=== PATIENT | male | born 1975 | race Caucasian/White ===

== ENCOUNTER 2019-11-12 01:06 | Emergency (ER) | payer MEDICAID, SELFPAY ==
[2019-11-12 01:16] VITALS: BP 153/79; PULSE 71; RESP 15; TEMP 37.1; O2SAT 99; BMI 25.1
[2019-11-12 02:08] LABS: Basophils # 0.1 K/mm3 (0-0.2); Basophils % 0.4 % (0.1-2.0); Eosinophils # 0.4 K/mm3 (0.0-0.4); Eosinophils % 3.5 % (0.1-12.0); Hemoglobin 14.7 g/dL (14.1-18.0); Lymphocytes # 3.9 K/mm3 (0.7-4.5); Lymphocytes % 33.8 % (10-50); Mean Corpuscular HGB Conc 34.2 g/dL (31.8-35.4); Mean Corpuscular Hemoglobin 32.6 pg (27.0-31.2); Mean Corpuscular Volume 95.3 fl (80-94); Mean Platelet Volume 7.3 fl (7.4-10.4); Monocytes # 0.7 K/mm3 (0.1-1.0); Monocytes % 5.8 % (1.7-9.3); Neutrophils # 6.5 K/mm3 (1.8-7.8); Neutrophils % 56.5 % (37.0-80.0); Platelet Count 224 K/mm3 (142-424); Red Blood Count 4.51 M/mm3 (4.60-6.20); Red Cell Distribution Width 13.3 % (11.5-17.5); White Blood Count 11.5 K/mm3 (4.8-10.8)
[2019-11-12 02:16] LABS: Alanine Aminotransferase 19 U/L (12-78); Albumin Level 4.4 g/dl (3.5-5.0); Albumin/Globulin Ratio 1.5 (1.1-1.8); Alkaline Phosphatase 73 U/L (38-126); Anion Gap 12.7 mEq/L (5-15); Aspartate Amino Transferase 39 U/L (17-59); Bilirubin,Total 0.3 mg/dl (0.2-1.3); Blood Urea Nitrogen 22 mg/dl (9-20); Calcium 9.2 mg/dl (8.4-10.2); Carbon Dioxide 23 mmol/L (22.0-30.0); Chloride 103 mmol/L (98-107); Creatinine Clearance Estimated 111 mL/min (50-200); Estimated Glomerular Filt Rate 82 ml/min (>60); GFR (African American) 99 ML/MIN (>60); Glucose 114 mg/dl (74-100); Potassium 3.7 mmoL/L (3.5-5.1); Sodium 135 mmol/L (136-145); Total Protein,Serum 7.4 g/dl (6.3-8.2)
[2019-11-12 02:21] LABS: C-Reactive Protein 4.2 mg/L (0-4)
[2019-11-12 02:33] VITALS: BP 94/60; PULSE 82; RESP 20; O2SAT 97
[2019-11-12 02:45] LABS: Erythrocyte Sedimentation Rate 14 mm/hr (0-15)
--- NOTE | 2019-11-12 02:46 | HMH.EDSKAF ---
ED Disposition Clinical Impression: Cellulitis Qualifiers: Site of cellulitis: extremity Site of cellulitis of extremity: lower extremity Laterality: left Qualified Code(s): L03.116 - Cellulitis of left lower limb Disposition: Home, Self-Care Condition on Discharge: Good Instructions: Cellulitis Additional Instructions: keep clean and use meds and see pcp for follow up Prescriptions: Mupirocin [Bactroban 2% Ointment 22gm tube] 1 applicatio TP BID #1 tube [facility] cephALEXin [Keflex 500mg Cap] 500 mg PO TID #30 cap Transmission Status: [facility] Minocycline HCl [Minocycline HCl 100mg Tab*] 100 mg PO BID #20 tab Transmission Status: [facility] Referrals: Provider,Referral, [Primary Care Provider] - - Critical Care Critical Care Time: No Attestation: On 11/12/19, the high probability of a clinically significant, sudden or life threatening deterioration of the following system(s) required my full and direct attention, intervention and personal management. The time I documented below is in addition to time spent performing reported procedures but includes the following listed in this critical care notation. Medical Decision Making - Medical Records Medical records reviewed: Yes: I reviewed the patient's medical records. - Carter Inquiry Pt receiving controlled substance: No Vital Signs: 11/12/19 01:16 11/12/19 02:33 Temperature 98.7 F Temperature Source Oral Pulse Rate [Right Brachial] 71 82 Respiratory Rate 15 20 Blood Pressure [Right Arm] 153/79 H 94/60 L Blood Pressure Mean [Right Arm] 103 71 Blood Pressure Source [Right Arm] Automatic Cuff Blood Pressure Position [Right Arm] Sitting 02 Sat by Pulse Oximetry 99 97 Oxygen Delivery Method Room Air Room Air - Lab Data Lab results reviewed: Yes: I reviewed the patient's lab results. Lab Results 11/12/19 01:58: WBC 11.5 H, RBC 4.51 L, Hgb 14.7, Hct 43.0, MCV 95.3 H, MCH 32.6 H, MCHC 34.2, RDW 13.3, Plt Count 224, MPV 7.3 L, Neut % (Auto) 56.5, Lymph % (Auto) 33.8, [place] % (Auto) 5.8, Eos % (Auto) 3.5, Baso % (Auto) 0.4, Neut # (Auto) 6.5, Lymph # (Auto) 3.9, [place] # (Auto) 0.7, Eos # (Auto) 0.4, Baso # (Auto) 0.1, ESR 14 11/12/19 01:58: Sodium 135 L, Potassium 3.7, Chloride 103, Carbon Dioxide 23, Anion Gap 12.7, BUN 22 H, Creatinine 1.00, Estimated Creat Clear 111, Estimated GFR 82, Est GFR ( Amer) 99, Glucose 114 H, Calcium 9.2, Total Bilirubin 0.3, AST 39, ALT 19, Alkaline Phosphatase 73, C-Reactive Protein 4.2 H, Total Protein 7.4, Albumin 4.4, Globulin 3.0, Albumin/Globulin Ratio 1.5 11/12/19 01:58: Lactate 1.0 Result diagrams: 11/12/19 01:58 11/12/19 01:58 Orders (Tests/Meds): ED MEDICATIONS Generic Name Dose Route Start Last Admin Trade Name Freq PRN Reason Stop Dose Admin Sodium Chloride 1,000 mls @ 999 mls/hr 11/12/19 02:45 11/12/19 02:37 Sod Chlor 0.9% 1000ml Bag IV 11/12/19 03:45 999 mls/hr .Q1H1M NAWAF Administration ORDERS Category Date Time Status Blood Culture Stat Micro 11/12/19 01:58 Received Skin/Abscess/FB HPI - General Chief complaint: Skin/Abscess/Foreign Body Stated complaint: Insect Bite on left Ankle Time Seen by Provider: 11/12/19 02:46 Mode of Arrival: Family Vehicle Source of Information: Patient, Spouse, Medical Record Limitations: No Limitations Description of Symptoms (Recalled from ER Triage Doc. by RN): left lateral calf insect bite with surround inflamed tissue. states he believe he got it on sat, but then possibly aggravated today by moving it alot. no pr3ev shared med history i don't do doctors - History of Present Illness HPI narrative: infected insect bite rt lower leg over the last few days MD complaint: insect bite/sting Onset (ago): day(s) Tetanus up to date: unsure Location: LLE Severity: moderate Quality: sharp Associated symptoms: denies other symptoms
[2019-11-12 03:03] VITALS: BP 112/80; PULSE 67; RESP 16; TEMP 37.1; O2SAT 98
== END 2019-11-12 03:18 | disposition home or self-care (01) ==
PROVIDERS: Emergency Provider Emergency Medicine
DX: L03.116 Cellulitis of left lower limb (principal); Z87.891 Personal history of nicotine dependence
CPT/HCPCS: 80053; 83605; 85025; 85651; 86140; 87040; 87070; 87205; 96365; 96375; 99283; 99284

== ENCOUNTER 2020-07-17 01:32 | Emergency (ER) | payer SELFPAY ==
[2020-07-17 01:40] VITALS: BP 154/99; PULSE 91; RESP 17; TEMP 37; O2SAT 99; BMI 20.7
--- NOTE | 2020-07-17 01:44 | PC.NURSE ---
pt at bedside with ultrasound looking at area of complaint
--- NOTE | 2020-07-17 01:44 | HMH.EDGENADL ---
ED Disposition Clinical Impression: Cellulitis Qualifiers: Site of cellulitis: extremity Site of cellulitis of extremity: lower extremity Laterality: left Qualified Code(s): L03.116 - Cellulitis of left lower limb Disposition: Home, Self-Care Condition on Discharge: Good Additional Instructions: Please return to the ED for any new or worsening symptoms including worsening redness spreading up the leg or fever Prescriptions: Sulfamethoxazole/Trimethoprim [Bactrim DS tablet] 1 each PO BID 7 Days #14 tab Transmission Status: [facility] cephALEXin [Cephalexin 500mg Tab] 500 mg PO Q6H 7 Days #28 tab Transmission Status: [facility] Referrals: PCP,No [Primary Care Provider] - Time of Disposition: :11 - Critical Care Critical Care Time: No Attestation: On 07/17/20, the high probability of a clinically significant, sudden or life threatening deterioration of the following system(s) required my full and direct attention, intervention and personal management. The time I documented below is in addition to time spent performing reported procedures but includes the following listed in this critical care notation. Medical Decision Making - Medical Records Medical records reviewed: Yes: I reviewed the patient's medical records. - Carter Inquiry Pt receiving controlled substance: No Vital Signs: 07/17/20 01:40 Temperature 98.6 F Temperature Source Oral Pulse Rate [Right Brachial] 91 H Respiratory Rate 17 Blood Pressure [Right Arm] 154/99 H Blood Pressure Mean [Right Arm] 117 Blood Pressure Source [Right Arm] Automatic Cuff Blood Pressure Position [Right Arm] Sitting 02 Sat by Pulse Oximetry 99 Oxygen Delivery Method Room Air Orders (Tests/Meds): ED MEDICATIONS Discontinued Medications Generic Name Dose Route Start Last Admin Trade Name Freq PRN Reason Stop Dose Admin Cephalexin HCl 500 mg 07/17/20 01:46 Cephalexin 500mg Capsule PO 07/17/20 01:47 ONCE ONE Protocol Trimethoprim/Sulfamethoxazole 1 each 07/17/20 01:46 Sulfa/Trimethoprim 1 Tablet PO 07/17/20 01:47 ONCE ONE Protocol Medical Decision Narrative: 45-year-old male who presents with swelling and redness to the left foot. Appears to have a cellulitis related to an abrasion just below the lateral malleolus. He has no systemic symptoms and is overall well-appearing. There is no evidence of abscess. Due to the infection being on the foot he will be given both Bactrim and Keflex and strict return precautions. He was discharged home in good condition after first dose obtained here. General Adult HPI - General Stated complaint: Insect bite on Rt Foot Time Seen by Provider: 07/17/20 01:45 Mode of Arrival: Family Vehicle Limitations: No Limitations Description of Symptoms (Recalled from ER Triage Doc. by RN): pt states he noticed a spot on his left lateral ankle. redness and swelling present. afebrile. thinks he might have a spider bite. - History of Present Illness HPI narrative: 45-year-old male who noticed redness and swelling over the lateral side of his left foot above the heel. Tender to touch and has pain while wearing his work boot. Suspects that he was bitten by a bug possibly a spider inside of his boot. Denies fever, chills, body aches. Has been able to walk without difficulty. No pain with flexion of the ankle. History of MRSA Onset (ago): day(s) Location: lower extremity Severity: mild Consistency: constant - Related Data Previous Rx's Medication Instructions Recorded Minocycline HCl [Minocycline HCl 100 mg PO BID #20 tab 11/12/19 100mg Tab*] Mupirocin [Bactroban 2% Ointment 1 applicatio TP BID #1 tube 11/12/19 22gm tube] cephALEXin [Keflex 500mg Cap] 500 mg PO TID #30 cap 11/12/19 Sulfamethoxazole/Trimethoprim 1 each PO BID 7 Days #14 tab 07/17/20 [Bactrim DS tablet] cephALEXin [Cephalexin 500mg Tab] 500 mg PO Q6H 7 Days #28 tab 0
[2020-07-17 02:17] VITALS: BP 134/72; PULSE 73; RESP 18; TEMP 36.8; O2SAT 98
== END 2020-07-17 02:20 | disposition home or self-care (01) ==
PROVIDERS: Emergency Provider Student in an Organized Health Care Education/Training Program
DX: S90.862A Insect bite (nonvenomous), left foot, initial encounter (principal); L03.116 Cellulitis of left lower limb; Z87.891 Personal history of nicotine dependence
CPT/HCPCS: 99281

== ENCOUNTER → 2020-11-05 14:37 | Outpatient (CLI) | payer SELFPAY ==
--- NOTE | 2020-11-05 14:48 | XR_ITS ---
PROCEDURE: XR CHEST 2V CLINICAL HISTORY: TB +Quantiferon TB-Gold Plus, Rule out Active/Latent COMPARISON: No exams were available for comparison FINDINGS: The cardiomediastinal silhouette and pulmonary vascularity are within normal limits. The lungs are clear without infiltrates, suspicious nodules, or pleural effusions. No acute bony abnormalities. IMPRESSION: No acute cardiopulmonary disease. Dictated by: Chad Hines MD 11/05/2020 15:33 Chad Hines MD in [place] 11/05/2020 15:33
== END ==
PROVIDERS: PCP Nurse Practitioner Family; Visit Provider Nurse Practitioner Family
DX: Z11.1 Encounter for screening for respiratory tuberculosis (principal)
CPT/HCPCS: 71046

== ENCOUNTER 2020-12-03 11:32 | Emergency (ER) | payer OTHER, SELFPAY ==
--- NOTE | 2020-12-03 11:56 | ECG_ITS ---
APPROVED REPORT Exam: Resting ECG HR:72 bpm ECG Measurements Heart Rate 72 AXES OH 172 P 58 QRSd 80 QRS 78 QT 366 T 58 QTc 400 Conclusion Normal sinus rhythm Normal ECG Electronically signed by : Fredi Morfin, 12/03/2020 21:31:49
--- NOTE | 2020-12-03 11:59 | HMH.EDGENADL ---
ED Disposition Clinical Impression: Right upper quadrant pain Disposition: Home, Self-Care Condition on Discharge: Good Instructions: DI for Acute Abdominal Pain Additional Instructions: Ibuprofen for pain. Additional instructions for ABDOMINAL PAIN: See your physician as soon as possible for further evaluation. Return immediately if worsening abdominal pain, vomiting, shortness of breath, fever, vomiting of blood or abdominal distention. Referrals: Dayana Mac APRN [Primary Care Provider] - - Critical Care Critical Care Time: No Attestation: On 12/03/20, the high probability of a clinically significant, sudden or life threatening deterioration of the following system(s) required my full and direct attention, intervention and personal management. The time I documented below is in addition to time spent performing reported procedures but includes the following listed in this critical care notation. Medical Decision Making - Carter Inquiry Pt receiving controlled substance: No Vital Signs: 12/03/20 12:02 Temperature 98.3 F Temperature Source Oral Pulse Rate [Left Radial] 76 Respiratory Rate 18 Blood Pressure [Right Arm] 165/87 H Blood Pressure Mean [Right Arm] 113 Blood Pressure Source [Right Arm] Automatic Cuff Blood Pressure Position [Right Arm] Sitting 02 Sat by Pulse Oximetry 98 Oxygen Delivery Method Room Air - Lab Data Lab Results 12/03/20 11:46: WBC 9.9, RBC 5.35, Hgb 15.6, Hct 45.5, MCV 85.1, MCH 29.2, MCHC 34.3, RDW 14.2, Plt Count 306, MPV 7.2 L, Neut % (Auto) 59.2, Lymph % (Auto) 32.5, [place] % (Auto) 5.7, Eos % (Auto) 1.6, Baso % (Auto) 1.0, Neut # (Auto) 5.8, Lymph # (Auto) 3.2, [place] # (Auto) 0.6, Eos # (Auto) 0.2, Baso # (Auto) 0.1 12/03/20 11:46: Amylase 57, Lipase 86 12/03/20 11:46: Sodium 139, Potassium 4.0, Chloride 105, Carbon Dioxide 26, Anion Gap 12.0, BUN 15, Creatinine 0.90, Estimated Creat Clear 132, Estimated GFR 92, Est GFR ( Amer) 111, Glucose 108 H, Calcium 8.9, Total Bilirubin 0.3, AST 31, ALT 20, Alkaline Phosphatase 81, Total Protein 7.6, Albumin 4.4, Globulin 3.2, Albumin/Globulin Ratio 1.4 12/03/20 12:12: Urine Color Yellow, Urine Appearance Clear, Urine pH 6.0, Ur Specific [place] 1.020, Urine Protein 1+, Urine Glucose (UA) Negative, Urine Ketones Negative, Urine Blood Trace-i, Urine Nitrate Negative, Urine Bilirubin Negative, Urine Urobilinogen 0.2, Ur Leukocyte Esterase Negative, Urine RBC None, Urine WBC None, Ur Squamous Epith Cells Occasional, Urine Bacteria None Result diagrams: 12/03/20 11:46 12/03/20 11:46 Orders (Tests/Meds): ED MEDICATIONS Discontinued Medications Generic Name Dose Route Start Last Admin Trade Name Freq PRN Reason Stop Dose Admin Sodium Chloride 1,000 mls @ 999 mls/hr 12/03/20 12:15 12/03/20 12:15 Sod Chlor 0.9% 1000ml Bag IV 12/03/20 13:15 999 mls/hr .Q1H1M NAWAF Administration Iopamidol 75 ml 12/03/20 12:36 12/03/20 12:38 Iopamidol-370 (76%);100ml Bottle IV 12/03/20 12:37 75 ml ONCE ONE Administration Ketorolac Tromethamine 30 mg 12/03/20 12:12 12/03/20 12:15 Ketorolac 30mg/Ml Vial IV 12/03/20 12:13 30 mg ONCE ONE Administration Ondansetron HCl 4 mg 12/03/20 12:12 12/03/20 12:15 Ondansetron 4mg/2ml Vial IV 12/03/20 12:13 4 mg ONCE ONE Administration Sodium Chloride 10 ml 12/03/20 12:36 12/03/20 12:38 Sodium Chloride 0.9% 10ml Syr (Rad Only) IV 12/03/20 12:37 10 ml ONCE ONE Administration - CT Data CT Scan: Abdomen, Pelvis Time Received: 13:[address] Reviewed: Yes: I have viewed the radiologist's interpretation Findings Narrative: PROCEDURE: CT ABDOMEN PELVIS W CON CLINICAL INDICATION: abdomen pain Right upper quadrant pain COMPARISON: No exams were available for comparison TECHNIQUE: IV Contrast: 75ML Isovue 370 Oral Contrast None Axial images obtained with sagittal and coronal reformats. All CT scans at the facility use one o
[2020-12-03 12:02] VITALS: BP 165/87; PULSE 76; RESP 18; TEMP 36.8; O2SAT 98; BMI 27.1
--- NOTE | 2020-12-03 12:12 | CT_ITS ---
PROCEDURE: CT ABDOMEN PELVIS W CON CLINICAL INDICATION: abdomen pain Right upper quadrant pain COMPARISON: No exams were available for comparison TECHNIQUE: IV Contrast: 75ML Isovue 370 Oral Contrast None Axial images obtained with sagittal and coronal reformats. All CT scans at the facility use one or more dose reduction, viz: automated exposure control, ma/kV adjustment per patient size (including targeted exams where dose is matched to indication, i.e. head), or iterative reconstruction technique. FINDINGS: LOWER THORAX: Minimal atelectatic changes in the right lung base posteriorly ABDOMEN & PELVIS: The liver, spleen, adrenal glands, and pancreas have an unremarkable appearance. There is mild ectasia of both renal collecting systems no definite ureteral calculi. No renal calculi apparent. Unremarkable appendix. No intestinal obstruction or free air. There is a mild amount of retained colonic feces. Small umbilical hernia containing fat There is mild thickening of the urinary bladder nonspecific. No evidence of diverticulitis. No pelvic mass or abnormal fluid collection. No acute bony anomaly IMPRESSION: 1. There is mild urinary bladder wall thickening which may be seen with incomplete distension, chronic outflow obstruction, or cystitis. 2. Otherwise negative Dictated by: Shahbaz Ann MD 12/03/2020 13:08 Shahbaz Ann MD in [place] 12/03/2020 13:08
[2020-12-03 12:22] LABS: Microscopic, Urine URINE MICROSCOPIC (MICROSCOPIC)
[2020-12-03 12:25] LABS: Appearance,Urine CLEAR (Clear); Bilirubin,Urine Negative (Negative); Blood, Urine TRACE-I (Negative); Color,Urine YELLOW (Yellow); Glucose,Urine (UA) Negative (Negative); Ketones,Urine Negative (Negative); Leukocyte Esterase,Urine Negative (Negative); Nitrate,Urine Negative (Negative); Protein,Urine 1+ (Negative); Urobilinogen,Urine 0.2 EU/dl (0.2)
[2020-12-03 12:26] LABS: Basophils # 0.1 K/mm3 (0-0.2); Eosinophils # 0.2 K/mm3 (0.0-0.4); Eosinophils % 1.6 % (0.1-12.0); Hematocrit 45.5 % (42.0-52.0); Hemoglobin 15.6 g/dL (14.1-18.0); Lymphocytes # 3.2 K/mm3 (0.7-4.5); Lymphocytes % 32.5 % (10-50); Mean Corpuscular HGB Conc 34.3 g/dL (31.8-35.4); Mean Corpuscular Hemoglobin 29.2 pg (27.0-31.2); Mean Corpuscular Volume 85.1 fl (80-94); Mean Platelet Volume 7.2 fl (7.4-10.4); Monocytes # 0.6 K/mm3 (0.1-1.0); Monocytes % 5.7 % (1.7-9.3); Neutrophils # 5.8 K/mm3 (1.8-7.8); Neutrophils % 59.2 % (37.0-80.0); Platelet Count 306 K/mm3 (142-424); Red Blood Count 5.35 M/mm3 (4.60-6.20); Red Cell Distribution Width 14.2 % (11.5-17.5); White Blood Count 9.9 K/mm3 (4.8-10.8)
[2020-12-03 12:32] LABS: Chloride 105 mmol/L (98-107); Sodium 139 mmol/L (136-145)
[2020-12-03 12:34] LABS: Blood Urea Nitrogen 15 mg/dl (9-20); Creatinine Clearance Estimated 132 mL/min (50-200); Estimated Glomerular Filt Rate 92 ml/min (>60); GFR (African American) 111 ML/MIN (>60)
[2020-12-03 12:35] LABS: Alanine Aminotransferase 20 U/L (12-78); Albumin Level 4.4 g/dl (3.5-5.0); Albumin/Globulin Ratio 1.4 (1.1-1.8); Alkaline Phosphatase 81 U/L (38-126); Amylase 57 U/L (30-110); Aspartate Amino Transferase 31 U/L (17-59); Bilirubin,Total 0.3 mg/dl (0.2-1.3); Calcium 8.9 mg/dl (8.4-10.2); Carbon Dioxide 26 mmol/L (22.0-30.0); Globulin 3.2 g/dL (1.3-3.2); Glucose 108 mg/dl (74-100); Lipase 86 U/L (23-300); Total Protein,Serum 7.6 g/dl (6.3-8.2)
[2020-12-03 12:41] LABS: Squamous Epithelial Cell,Urine Occasional #/hpf (0-5)
[2020-12-03 13:46] VITALS: BP 161/99; PULSE 75; RESP 18; TEMP 36.8; O2SAT 97
== END 2020-12-03 13:48 | disposition home or self-care (01) ==
PROVIDERS: Emergency Provider Emergency Medicine; PCP Nurse Practitioner Family
DX: R10.11 Right upper quadrant pain (principal); Z87.891 Personal history of nicotine dependence
CPT/HCPCS: 74177; 80053; 81001; 82150; 83690; 85025; 93005; 96365; 96375; 99283; J2405; Q9967

== ENCOUNTER 2021-08-03 23:34 | Emergency (ER) | payer OTHER, SELFPAY ==
[2021-08-03 23:36] VITALS: BP 154/100; PULSE 97; RESP 18; TEMP 37.3; O2SAT 97; BMI 28.3
[2021-08-03 23:46] VITALS: BP 154/100; PULSE 109; O2SAT 96
[2021-08-04] VITALS: BP 139/103; PULSE 107; O2SAT 95
[2021-08-04 00:30] VITALS: BP 124/91; PULSE 96; O2SAT 92
--- NOTE | 2021-08-04 00:38 | CT_ITS ---
PROCEDURE INFORMATION: Exam: CT Lumbar Spine Without Contrast Exam date and time: 08/04/2021 12:38 AM Age: 46 years old Clinical indication: Other: Pain radiates to lle; Additional info: Pain to lle TECHNIQUE: Imaging protocol: Computed tomography images of the lumbar spine without contrast. Radiation optimization: All CT scans at this facility use at least one of these dose optimization techniques: automated exposure control; mA and/or kV adjustment per patient size (includes targeted exams where dose is matched to clinical indication); or iterative reconstruction. COMPARISON: CT ABDOMEN PELVIS W CON 12/03/2020 12:31 PM FINDINGS: Vertebrae: Presumed rudimentary disc space at S1-S2 for purposes of this dictation. Lumbar vertebral body heights are maintained. No acute fracture. There is a mild levoconvex curvature of the lumbar spine. Mild retrolisthesis of L2 on L3 is unchanged compared to prior CT study of 12/03/2020 and therefore chronic/degenerative. No new spondylolisthesis. L1-L2: Ediz-hs-wpcaijkn disc height loss with bilobed disc bulging. Mild spinal canal stenosis. Neural foramina appear adequately patent. L2-L3: Mild retrolisthesis. Mild disc height loss with circumferential bulging and posterior endplate spurring. Mild facet hypertrophy. Moderate neural foraminal narrowing. Mild spinal canal stenosis. L3-L4: Mild disc height loss with bilobed disc bulging and posterior endplate spurring. Mild hypertrophic facet arthropathy and ligamentum flavum thickening. Moderate to severe right and moderate left neural foraminal narrowing. Dwen-hp-aofylyzg spinal canal stenosis. L4-L5: Mild disc height loss with circumferential bulging and posterior endplate spurring, asymmetric towards the right. Mild to moderate facet hypertrophy and ligamentum flavum thickening. Mild to moderate spinal canal stenosis. Marked right lateral recess effacement, with possible impingement of the descending right L5 nerve root. Severe right and moderate to severe left neural foraminal narrowing. L5-S1: Mild disc height loss with circumferential bulging and posterior endplate spurring, asymmetric towards the left. Moderate facet hypertrophy. Mild ligamentum flavum thickening. Mild spinal canal stenosis. Moderate left lateral recess effacement. Severe left and moderate to severe right neural foraminal narrowing. Paraspinal soft tissues: Unremarkable. IMPRESSION: 1. No acute finding within the lumbar spine. 2. Multilevel degenerative changes as described.
[2021-08-04 00:59] LABS: Basophils # 0.2 K/mm3 (0-0.2); Basophils % 2.1 % (0.1-2.0); Eosinophils # 0.1 K/mm3 (0.0-0.4); Hematocrit 47.4 % (42.0-52.0); Hemoglobin 15.5 g/dL (14.1-18.0); Lymphocytes # 2.8 K/mm3 (0.7-4.5); Lymphocytes % 31.5 % (10-50); Mean Corpuscular HGB Conc 32.6 g/dL (31.8-35.4); Mean Corpuscular Volume 88.9 fl (80-94); Mean Platelet Volume 7.2 fl (7.4-10.4); Monocytes # 0.5 K/mm3 (0.1-1.0); Monocytes % 5.5 % (1.7-9.3); Neutrophils # 5.4 K/mm3 (1.8-7.8); Neutrophils % 59.9 % (37.0-80.0); Platelet Count 295 K/mm3 (142-424); Red Blood Count 5.33 M/mm3 (4.60-6.20); Red Cell Distribution Width 13.8 % (11.5-17.5)
[2021-08-04 01:01] LABS: Chloride 105 mmol/L (98-107); Potassium 4.3 mmoL/L (3.5-5.1); Sodium 138 mmol/L (136-145)
[2021-08-04 01:04] LABS: Blood Urea Nitrogen 27 mg/dl (9-20); Creatinine Clearance Estimated 123 mL/min (50-200); Estimated Glomerular Filt Rate 81 ml/min (>60); GFR (African American) 98 ML/MIN (>60)
[2021-08-04 01:05] LABS: Alanine Aminotransferase 27 U/L (12-78); Albumin Level 4.6 g/dl (3.5-5.0); Alkaline Phosphatase 77 U/L (38-126); Anion Gap 13.3 mEq/L (5-15); Aspartate Amino Transferase 35 U/L (17-59); Bilirubin,Direct 0.3 mg/dl (0.0-0.4); Bilirubin,Total 0.3 mg/dl (0.2-1.3); Bilirubin,Unconjugated 0.1 mg/dL (0.0-1.1); Calcium 8.6 mg/dl (8.4-10.2); Carbon Dioxide 24 mmol/L (22.0-30.0); Glucose 102 mg/dl (74-100); Total Protein,Serum 7.7 g/dl (6.3-8.2)
[2021-08-04 01:10] LABS: C-Reactive Protein 2.7 mg/L (0-4)
[2021-08-04 01:35] LABS: Erythrocyte Sedimentation Rate 8 mm/hr (0-15)
--- NOTE | 2021-08-04 01:47 | HMH.EDGENADL ---
ED Disposition Clinical Impression: Lumbar radiculopathy, acute Disposition: Home, Self-Care Condition on Discharge: Good Instructions: DI for Lumbar Radiculopathy Additional Instructions: use meds and see pcp for follow up Prescriptions: predniSONE [Prednisone 20mg Tab] 20 mg PO BID #10 tab Transmission Status: Pending to [facility] Referrals: Provider,Referral, [Primary Care Provider] - - Critical Care Critical Care Time: No Attestation: On 08/03/21, the high probability of a clinically significant, sudden or life threatening deterioration of the following system(s) required my full and direct attention, intervention and personal management. The time I documented below is in addition to time spent performing reported procedures but includes the following listed in this critical care notation. Medical Decision Making - Medical Records Medical records reviewed: Yes: I reviewed the patient's medical records. - Carter Inquiry Pt receiving controlled substance: No Vital Signs: 08/03/21 23:36 08/03/21 23:46 08/04/21 00:00 Temperature 99.1 F Temperature Source Oral Pulse Rate 109 H 107 H Pulse Rate [Left] 97 H Respiratory Rate 18 Blood Pressure 154/100 H 139/103 H Blood Pressure [Right Arm] 154/100 H Blood Pressure Mean [Right Arm] 118 02 Sat by Pulse Oximetry 97 96 95 Oxygen Delivery Method Room Air Room Air Room Air 08/04/21 00:30 Temperature Temperature Source Pulse Rate 96 H Pulse Rate [Left] Respiratory Rate Blood Pressure 124/91 H Blood Pressure [Right Arm] Blood Pressure Mean [Right Arm] 02 Sat by Pulse Oximetry 92 L Oxygen Delivery Method Room Air - Lab Data Lab results reviewed: Yes: I reviewed the patient's lab results. Lab Results 08/04/21 00:50: WBC 9.0, RBC 5.33, Hgb 15.5, Hct 47.4, MCV 88.9, MCH 29.0, MCHC 32.6, RDW 13.8, Plt Count 295, MPV 7.2 L, Neut % (Auto) 59.9, Lymph % (Auto) 31.5, [place] % (Auto) 5.5, Eos % (Auto) 1.0, Baso % (Auto) 2.1 H, Neut # (Auto) 5.4, Lymph # (Auto) 2.8, [place] # (Auto) 0.5, Eos # (Auto) 0.1, Baso # (Auto) 0.2, ESR 8 08/04/21 00:50: Sodium 138, Potassium 4.3, Chloride 105, Carbon Dioxide 24, Anion Gap 13.3, BUN 27 H, Creatinine 1.00, Estimated Creat Clear 123, Estimated GFR 81, Est GFR ( Amer) 98, Glucose 102 H, Calcium 8.6, C-Reactive Protein 2.7 08/04/21 00:50: Total Bilirubin 0.3, Direct Bilirubin 0.3, Conjugated Bilirubin 0.0, Indirect Bilirubin 0.0, Unconjugated Bilirubin 0.1, AST 35, ALT 27, Alkaline Phosphatase 77, Total Protein 7.7, Albumin 4.6 Result diagrams: 08/04/21 00:50 08/04/21 00:50 Orders (Tests/Meds): ED MEDICATIONS Discontinued Medications Generic Name Dose Route Start Last Admin Trade Name Freq PRN Reason Stop Dose Admin Ketorolac Tromethamine 60 mg 08/04/21 00:39 08/04/21 00:43 Ketorolac 60mg/2ml Vial IM 08/04/21 00:40 Not Given ONCE ONE Ketorolac Tromethamine 30 mg 08/04/21 00:41 08/04/21 00:55 Ketorolac 30mg/Ml Vial IV 08/04/21 00:42 30 mg ONCE ONE Administration Methylprednisolone Sodium Succinate 125 mg 08/04/21 00:39 08/04/21 00:43 Methylprednisolone Sod Succ 125mg Vial IM 08/04/21 00:40 Not Given ONCE ONE Methylprednisolone Sodium Succinate 125 mg 08/04/21 00:41 08/04/21 00:55 Methylprednisolone Sod Succ 125mg Vial IV 08/04/21 00:42 125 mg ONCE ONE Administration - CT Data CT Scan: L-Spine Time Received: 01:[address] Reviewed: Yes: I have viewed the radiologist's interpretation Preliminary Findings: Abnormal (see report ) Medical Decision Narrative: has back pain with neurogenic claudication - no cauda equina - General Adult HPI - General Chief complaint: PAIN Stated complaint: Pain in left left, pain moves Up & down leg Time Seen by Provider: 08/04/21 00:00 Mode of Arrival: Wheelchair Source of Information: Patient, Medical Record Limitations: No Limitations Description of Symptoms (Recalled from
[2021-08-04 01:58] VITALS: BP 128/88; PULSE 89; RESP 16; TEMP 36.7; O2SAT 95
== END 2021-08-04 02:06 | disposition home or self-care (01) ==
PROVIDERS: Emergency Provider Emergency Medicine
DX: M54.16 Radiculopathy, lumbar region (principal); Z87.891 Personal history of nicotine dependence
CPT/HCPCS: 72131; 80048; 80076; 85025; 85651; 86140; 96374; 96375; 99284

== ENCOUNTER → 2021-08-16 13:13 | Outpatient (CLI) | payer OTHER, SELFPAY ==
[2021-08-16 14:10] LABS: Chol/HDL Ratio 2.6 (1-3.5); Cholesterol 179 mg/dl (140-200); HDL Cholesterol 69 mg/dl (40-60); Triglycerides 178 mg/dl (30-150); VLDL Cholesterol 36 mg/dL (0-40)
[2021-08-16 14:20] LABS: Direct LDL Cholesterol 63.77 mg/dL (100-129)
[2021-08-16 14:24] LABS: Free T4 (Free Thyroxine) 1.25 ng/dl (0.78-2.19)
[2021-08-16 14:30] LABS: 25-OH Vitamin D, Total 14.6 ng/mL (30-100)
[2021-08-16 14:39] LABS: Thyroid Stimulating Hormone 0.74 uIU/mL (0.465-4.68)
== END ==
PROVIDERS: Visit Provider Emergency Medicine
DX: R10.11 Right upper quadrant pain (principal); E55.9 Vitamin D deficiency, unspecified
CPT/HCPCS: 80061; 82306; 84439; 84443

== ENCOUNTER 2021-09-22 15:34 | Emergency (ER) | payer OTHER, SELFPAY ==
[2021-09-22 15:43] VITALS: BP 133/98; PULSE 87; RESP 16; TEMP 36.8; O2SAT 98; BMI 27.2
--- NOTE | 2021-09-22 16:13 | HMH.EDBACK ---
ED Disposition Clinical Impression: Lumbar radiculopathy Disposition: Home, Self-Care Condition on Discharge: Fair Instructions: DI for Low Back Pain Referrals: Gelacio Castillo MD [Primary Care Provider] - - Critical Care Critical Care Time: No Attestation: On 09/22/21, the high probability of a clinically significant, sudden or life threatening deterioration of the following system(s) required my full and direct attention, intervention and personal management. The time I documented below is in addition to time spent performing reported procedures but includes the following listed in this critical care notation. Medical Decision Making - Medical Records Medical records reviewed: Yes: I reviewed the patient's medical records. - Carter Inquiry Pt receiving controlled substance: No Carter was queried for this patient: No Vital Signs: 09/22/21 15:43 Temperature 98.2 F Temperature Source Oral Pulse Rate [Radial] 87 Respiratory Rate 16 Blood Pressure [Right Arm] 133/98 H Blood Pressure Mean [Right Arm] 109 Blood Pressure Position [Right Arm] Sitting 02 Sat by Pulse Oximetry 98 Oxygen Delivery Method Room Air - Lab Data Lab results reviewed: Yes: I reviewed the patient's lab results. Orders (Tests/Meds): ED MEDICATIONS Generic Name Dose Route Start Last Admin Trade Name Freq PRN Reason Stop Dose Admin Methocarbamol 1,000 mg 09/22/21 21:00 09/22/21 15:55 Methocarbamol 500mg Tablet PO 10/22/21 20:59 1,000 mg BID NAWAF Administration Discontinued Medications Generic Name Dose Route Start Last Admin Trade Name Freq PRN Reason Stop Dose Admin Ketorolac Tromethamine 15 mg 09/22/21 15:48 09/22/21 15:54 Ketorolac 30mg/Ml Vial IM 09/22/21 15:49 15 mg ONCE ONE Administration Lidocaine 1 each 09/22/21 15:48 09/22/21 15:54 Lidocaine 5% Transdermal Patch TP 09/22/21 15:49 1 each ONCE ONE Administration Medical Decision Narrative: Patient is a 46-year-old male with past medical history of lumbar radiculopathy presenting to the ED for lower back pain. Patient is awake, alert, not in acute distress. Patient is a medically stable, afebrile. Patient's physical exam is remarkable for tenderness to palpation of the left lute otherwise is benign. Patient has no focal neurological deficits. Patient has normal strength of his bilateral lower extremities, normal sensation. Differential includes but is not limited to sciatic pain, regular regular pain, very low concern for cauda equina. Given this patient was given Toradol, Robaxin, lidocaine patch. Patient was ambulatory in the ED. At this point patient was stable for discharge. Patient was given strict return precautions and follow-up instructions. Back Pain HPI - General Chief Complaint: Back Pain/Injury Stated Complaint: lower back and legs pain Time Seen by Provider: 09/22/21 16:13 Mode of Arrival: Ambulatory Limitations: No Limitations Description of Symptoms (Recalled from ER Triage Doc. by RN): to ed per pvt car with c/o lt side lower back pain radiating down lt leg. pt with hx of same and waiting for a call from md's office to schedule a mri pt states flare up started today. - History of Present Illness HPI Narrative: Patient is a 46-year-old male with past medical history of lumbar radiculopathy presenting to the ED for back pain. Patient states that he has pain located in his left lower back. States that the pain radiates down to his left leg. Patient has paresthesias down this. Patient states the pain feels exactly like his prior flareups of the radicular. Patient states that he is on chronic pain medications however has ran out of his medications and cannot get into his primary care physician until next week. He denies any weakness of his legs, numbness of his legs. Denies any saddle anesthesia. Denies any urinary retention, urinary incontinence, bowel incontinence. - Related Data Previous Rx's
[2021-09-22 16:34] VITALS: BP 135/78; PULSE 78; RESP 16; TEMP 36.6; O2SAT 98
== END 2021-09-22 16:35 | disposition home or self-care (01) ==
PROVIDERS: Emergency Provider Emergency Medicine; PCP Emergency Medicine
DX: M54.16 Radiculopathy, lumbar region (principal); M48.061 Spinal stenosis, lumbar region without neurogenic claudication; F17.210 Nicotine dependence, cigarettes, uncomplicated
CPT/HCPCS: 96372; 99283

== ENCOUNTER → 2021-11-01 08:12 | Outpatient (POV) | payer OTHER, SELFPAY ==
[2021-11-01 08:31] VITALS: BP 140/84; PULSE 81; RESP 18; TEMP 36.9; O2SAT 97; BMI 28.5
--- NOTE | 2021-11-01 08:43 | HMH.PMCON ---
Assessment and Plan (1) Degenerative joint disease (DJD) of lumbar spine Status: Acute Category: Medical Code(s): M47.816 - Spondylosis without myelopathy or radiculopathy, lumbar region (2) Lumbar radiculopathy Status: Acute Category: Medical Code(s): M54.16 - Radiculopathy, lumbar region (3) Neural foraminal stenosis of lumbar spine Status: Acute Category: Medical Code(s): M48.061 - Spinal stenosis, lumbar region without neurogenic claudication - Assessment and plan all Dx Assessment and Plan for all problems:: This patient is a very pleasant 46-year-old male who works at [employer]. He has been dealing with low back pain as well as bilateral hip and leg radicular symptoms to the foot for about a year now. He is currently taking hydrocodone 5 mg 1 p.o. 3 times daily and gabapentin grams 1 p.o. 3 times daily from his PCP. His Carter #[id number] has been reviewed and appropriate. His CT scan of the lumbar spine does reveal multilevel degenerative disc. Multilevel disc bulge. Spinal stenosis L4-5 and L5-S1. Also, some lumbar facet arthropathy bilaterally. Patient describes low back pain as constant, dull, aching. He reports his lateral leg radicular symptoms as constant, sharp, stabbing at times. Left greater than right. He rates his pain 8/10. Patient is tried physical therapy for the low spine over 4 to 6-week period. However, he mentions this made his pain worse. He has tried NSAIDs without relief. Home exercise program no relief. Patient is awake alert [place] x3. In no acute distress. Flexion-extension lumbar spine very guarded secondary to pain. Deep tendon reflexes upper and lower extremities normal. Motor strength upper and lower extremities normal. There is no gross sensory deficit. Gait is normal. Degenerative disc disease lumbar spine multilevels. Multilevel lumbar spinal stenosis. Multilevel disc bulge lumbar spine. Lumbar radiculopathy bilateral legs. Discussed in detail with the patient regarding lumbar epidural steroid injection at the L4-5 level. Questions were answered. Patient request to proceed with scheduling the lumbar epidural steroid injection. HPI - Data of Consult Consult date: 11/01/21 Requesting Physician: Jose Carlos Berry CRNA - Consult Narrative Reason for consult: Low back pain. Bilateral leg radiculopathy. History of present illness: Mr. Huggins is a 46 year old male CC: Jose Carlos Berry CRNA [facility] History Medical History: Denies:: Diabetes Mellitus Type 2 *Have you ever received a pneumonia vaccine?: No *Have you received a flu vaccine this season?: No Other Surgeries: Yes: Other - *Social History Smoking Status: Current every day smoker Tobacco Type: cigarettes # Packs/Day (cigarettes): 1 Alcohol Intake: never Alcohol Intake Frequency:: holidays/special occasions only Substance Use Type: methamphetamine *Occupational Status:: other *Travel in the last 8 weeks: None Family Hx:: Diabetes, Hypertension, Stroke, Cancer Meds Home Medications Medication Instructions Recorded Confirmed Type Acetaminophen with Codeine 1 tab PO BID 11/01/21 11/01/21 History [Acetaminophen w/Codeine #3 Tablet] Cholecalciferol (Vitamin D3) 1,000 unit PO DAILY 11/01/21 11/01/21 History [Vitamin D3 1,000 Unit Cap] Ergocalciferol (Vitamin D2) 50,000 unit PO QWEEK 11/01/21 11/01/21 History [Drisdol] Gabapentin [Gabapentin 100mg Cap] 100 mg PO TID 11/01/21 11/01/21 History Hydrocod/Acet 5/325 mg [[place] 1 tab PO BID 11/01/21 11/01/21 History 5/325mg tablet] Allergies Allergy/AdvReac Type Severity Reaction Status Date / Time No Known Allergies Allergy Verified 10/10/21 09:42 Objective Vital signs: Temp Pulse Resp BP Pulse Ox 98.4 F 81 18 140/84 97 11/01/21 08:31 11/01/21 08:31 11/01/21 08:31 11/01/21 08:31 11/01/21 08:31 Opioid Risk Tool - Opioid Risk Tool-Male Family hx alcohol abuse: N Family hx illegal drugs: N Fam
== END ==
PROVIDERS: Visit Provider Nurse Anesthetist, Certified Registered
DX: M51.16 Intervertebral disc disorders with radiculopathy, lumbar region (principal); M48.061 Spinal stenosis, lumbar region without neurogenic claudication
CPT/HCPCS: 99202; G0463

== ENCOUNTER → 2021-11-09 09:03 | Outpatient (CLI) | payer OTHER, SELFPAY ==
[2021-11-08 20:25] LABS: Benzodiazepines Screen,Urine Negative ng/ml (<200)
[2021-11-08 20:27] LABS: Barbiturates Screen,Urine Negative ng/ml (<200); Cannabinoid Screen,Urine Negative ng/ml (<50)
[2021-11-08 20:28] LABS: Cocaine Screen,Urine Negative ng/ml (<300); Methadone Screen,Urine Negative ng/ml (<300)
[2021-11-08 20:29] LABS: Opiate Screen,Urine Positive ng/ml (<300)
[2021-11-08 20:30] LABS: Phencyclidine Screen,Urine Negative ng/ml (<25)
[2021-11-08 21:01] LABS: Amphetamine/Metha Screen,Urine Positive ng/ml (<1000)
== END ==
PROVIDERS: PCP Emergency Medicine; Visit Provider Emergency Medicine
DX: M54.16 Radiculopathy, lumbar region (principal)
CPT/HCPCS: 80305

== ENCOUNTER 2021-11-18 09:06 | Day surgery (SDC) | payer OTHER, SELFPAY ==
[2021-11-18 09:16] VITALS: BP 140/87; PULSE 72; RESP 18; TEMP 36.1; O2SAT 96; BMI 28.7
[2021-11-18 09:50] VITALS: BP 140/78; PULSE 85; RESP 18; O2SAT 98
[2021-11-18 09:54] VITALS: BP 138/79; PULSE 84; RESP 18; O2SAT 97
--- NOTE | 2021-11-18 10:01 | P.PCN_ITS ---
- Procedure Date: 11/18/21 Time: 10:01 Anesthesiologist:: Naeem Ellison MD Complications:: None Pre-procedure Diagnosis:: Degenerative disc disease of lumbar spine with lumbar radiculopathy symptoms Post-procedure Diagnosis:: Same Indications for Procedure:: This patient is a pleasant 46-year-old white male who works at [employer]. He has increasing low back pain radiating down the left leg. We will plan on a lumbar epidural steroid injection today to see if this will help with his pain symptoms. Procedure Details:: Informed consent was obtained and the risk and benefits of the procedure was explained to the patient. The patient was taken to the procedure room. The patient was placed prone on the procedure table. The patient was prepped and draped in sterile fashion. C-arm fluoroscopy was used to view the lumbar spine. Skin and subcutaneous tissues were anesthetized using lidocaine. I placed an 18-gauge epidural needle and advanced into the L4-L5 interspace using fluoroscopic guidance and [id number] to air. After confirmation of needle placement in the epidural space with dye I injected 2 mL of lidocaine 1.5% with Depo-Medrol 80 mg. Patient tolerated the procedure well with no complications. Plan and Disposition:: We will follow-up with him in 2 weeks. Will reevaluate symptoms at that time.
[2021-11-18 10:15] VITALS: BP 143/77; PULSE 63; RESP 18; O2SAT 98
== END 2021-11-18 10:16 | disposition home or self-care (01) ==
LOC: SC.PAINP 09:07
PROVIDERS: PCP Emergency Medicine; Visit Provider Anesthesiology
DX: M51.16 Intervertebral disc disorders with radiculopathy, lumbar region (principal)
CPT/HCPCS: 62323; J1040; Q9966